=== PATIENT | male | born 1995 | race African-American/Black ===

== ENCOUNTER 2017-07-19 02:34 | Emergency (ER) | payer BC ==
[2017-07-19] MEDS ORDERED: NORMAL SALINE 1000 ML 1,000 ML IV ONE (03:15)
--- NOTE | 2017-07-19 03:16 | ER Document Report ---
ED General <KAIA HOWARD - Last Filed: 07/19/17 06:13> <MANI BAKER - Last Filed: 07/19/17 06:38> - General Chief Complaint: Altered Mental Status Stated Complaint: ALTERED MENTAL STATUS Time Seen by Provider: 07/19/17 02:59 - HPI Notes: Patient is a 22-year-old male with a history of anxiety/depression and psychosis who presents to the ED with altered mental status for the last 6 hours +/-. Pt is a resident of [facility]. One of the employees accompanied patient to the ED by EMS. He states that pt has been hallucinating, scratching at the roman, not articulating words, pretend eating food, and staring off in the distance. He states that the pt has not slept at all since employee arrived for his shift at 2100. He noticed the behavioral change at that time ( running in/out of ppl's rooms, aggressiveness), but was told that he ate dinner and was acting normally prior. Employee states that he is usually talkative and "with it." The facility/employee deny any fall or trauma. He has not had any new medications. They did notice that he has been breathing a little faster and it sounds wheezy. Employee states that he will acknowledge questions , but won't have any clear answers nor will he obey accordingly at times. They deny any other known fever, nasal francesco/discharge, trouble swallowing, drooling, muscle paralysis/weakness, syncope, rash. (MANI BAKER) Past Medical History - General Cannot obtain history due to: Altered mental status - Social History Smoking Status: Unknown if Ever Smoked Family History: Other - unknown <MANI BAKER - Last Filed: 07/19/17 06:38> Review of Systems - Review of Systems -: Yes ROS unobtainable due to patient's medical condition <MANI BAKER - Last Filed: 07/19/17 06:38> Physical Exam <KAIA HOWARD - Last Filed: 07/19/17 06:13> <MANI BAKER - Last Filed: 07/19/17 06:38> - Vital signs Vitals: Temp Pulse Resp BP Pulse Ox 98.8 F 114 H 22 H 122/88 H 99 07/19/17 02:59 07/19/17 02:59 07/19/17 02:59 07/19/17 02:59 07/19/17 02:59 Notes: PHYSICAL EXAMINATION: GENERAL: Well-appearing, well-nourished and in no acute distress. Alert, but not oriented. Pt not following direction very well. Pt noted to be reaching into the air with hands and feeding himself something that isn't there. Pt was babbling and on occasion phrases could be understood. HEAD: Atraumatic, normocephalic. Non-tender. EYES: Pupils equal round and reactive to light, extraocular movements intact, sclera anicteric, conjunctiva are normal. ENT: EAC clear b/l. TM's intact b/l without erythema, fluid, or perforation. Nares patent and without discharge. oropharynx clear without exudates. No tonsilar hypertrophy or erythema. Moist mucous membranes. No sinus tenderness. NECK: Normal range of motion, supple without lymphadenopathy. No rigidity. Pt able to flex neck w/o difficulty or discomfort as well as legs. Non-tender. LUNGS: wheezing b/l. HEART: Tachy rate, regular rhythm without murmurs, rubs, gallops. ABDOMEN: Soft, nondistended abdomen. No masses appreciated. Normal bowel sounds present. No CVA tenderness bilaterally. + ?tenderness due to noted guarding to the RLQ. Musculoskeletal: Ext b/l: FROM to passive/active. Strength 5+/5. No focal deficit noted to extremities. Extremities: No cyanosis, clubbing, or edema b/l. Peripheral pulses 2+. Capillary refill less than 3 seconds. NEUROLOGICAL: GCS 13. MMSE not able to obtain. Cranial nerves grossly intact. Normal sensory, motor exams PSYCH: Normal mood, normal affect. SKIN: Warm, Dry, normal turgor, no rashes or lesions noted. (MANI BAKER) Course - Laboratory Result Diagrams: 07/19/17 04:00 07/19/17 04:00 <KAIA HOWARD - Last Filed: 07/19/17 06:13> - Laboratory Result Diagrams: 07/19/17 04:00 07/19/17 04:00 <MANI BAKER - Last Filed: 07/19/17 06:38> - Re-evaluation Re-evalutation: Patient is a 22-year-old male who was initially seen by the PA. I did go in and evaluate the patient. I did speak with the career development consultant from [facility] who is at bedside. He said that he was called tonight because the patient was agitated and going into other peoples rooms. Patient was picking at the air. Patient was speaking to people who were not there. Patient appeared psychotic. Patient was sent here because they checked his temp and it was 100.0. Upon arrival patient's temp is 98.6. There is no report of antipyretics given. The patient was agitated at [facility] and therefore the implant screw gave him 10 mg of Haldol, 50 mg of Benadryl, and 2 mg of Ativan. Patient is now obviously somnolent and confused after receiving all those medications. The career development consultant from [facility] just denies any recent sick contacts at the facility. He has been there since July 12. It is impossible to obtain any history from the patient himself at this time. Will wait for laboratory evaluation to be completed. At this time will hold off from lumbar puncture being that he is afebrile and his symptoms are more consistent with a psychiatric break. I think meningitis is unlikely based on his history and currently being afebrile. I did review his medications and saw that he is on [place]. I kaila obtain a lithium level. It appears that his lithium was held 24 hours ago. 07/19/17 4:35 07/19/17 05:02 Patient is now much more awake but still obviously confused. He is able to answer some questions but seems very anxious and agitated. In reviewing his medication list again it is hard to determine what exactly has been held and what has been given last 24 hours. He was on Prolixin for psychosis but that was held starting yesterday. His Wellbutrin was also held starting yesterday. His lithium says hold for 24 hours but it also appears that they probably gave it to him yesterday so it is difficult to determine if that was actually held. I suspect that what is going on could be in relation to the recent medication changes he has had last 24 hours. He has no leukocytosis and no fever at this time. We will continue to monitor him and have our psychiatry consult to evaluate and to determine what medications we can start him on to try to control his symptoms. We will give him some IV fluids. We will keep him on the monitor at this time. 07/19/17 06:11 07/19/17 Chest x-ray shows possible pneumonia. He looks really as if the patient did not take a deep breath. I do not see an obvious infiltrate. Being that the patient has had some recent coughing will still cover him in case there is an underlying pneumonia only because it is really difficult to completely rule out based on poor x-ray. She does have a pneumonia is extremely small and I do not think this would be causing his symptoms of psychotic cutting type behavior. (KAIA HOWARD) 07/19/17 03:25 Pt with AMS Pt was given Haldol, benadryl, and ativan in EMS prior to arrival (MANI BAKER) - Vital Signs Vital signs: Temp Pulse Resp BP Pulse Ox 98.8 F 114 H 14 131/63 H 99 07/19/17 02:59 07/19/17 02:59 07/19/17 05:00 07/19/17 04:04 07/19/17 05:00 - Laboratory Laboratory results interpreted by me: 07/19/17 07/19/17 07/19/17 04:00 04:00 04:00 Monocytes % 18.7 H Absolute Monocytes 1.8 H Calcium 10.3 H Creatine Kinase 475 H CK-MB (CK-2) 9.34 H Urine Blood [place] 07/19/17 07/19/17 04:00 04:45 Monocytes % Absolute Monocytes Calcium Creatine Kinase CK-MB (CK-2) Urine Blood SMALL H [place] 0.5 L Discharge <KAIA HOWARD - Last Filed: 07/19/17 06:13> <MANI BAKER - Last Filed: 07/19/17 06:38> - Discharge Clinical Impression: Pneumonia Qualifiers: Pneumonia type: due to unspecified organism Laterality: left Lung location: unspecified part of lung Qualified Code(s): J18.9 - Pneumonia, unspecified organism Instructions: Pneumonia ([facility]), Levofloxacin Additional Instructions: Finish the antibiotic as directed for 4 more days. Monitor for any acute changes in symptoms Maintain adequate fluid intake Take meds as directed tylenol/ibuprofen as needed over the counter cold medication as needed for symptoms Humidified air may help F/u: with your PCM in 2-3 days for a recheck Return to the ED with any fever, worsening pain, chest pain, palpitations, syncope, worsening CONTRERAS, neck pain/stiffness, shortness of breath, wheezing, drooling, trouble swallowing/breathing, abdominal pain, n/v/d, rash, or worsening/concerning symptoms otherwise. Prescriptions: Levofloxacin [Levaquin 750 mg Tablet] 750 mg PO DAILY #4 tablet Referrals: MAXIMUS BERG MD [Primary Care Provider] - Follow up as needed
[2017-07-19 04:26] LABS: ALANINE AMINOTRANSFERASE 64 U/L (21-72); ALBUMIN 4.7 g/dL (3.5-5.0); ALKALINE PHOSPHATASE 83 U/L (38-126); ANION GAP 12 (5-19); ASPARTATE AMINO TRANSFERASE 40 U/L (17-59); BILIRUBIN,DIRECT 0.4 mg/dL (0.0-0.4); BILIRUBIN,TOTAL 0.7 mg/dL (0.2-1.3); BLOOD UREA NITROGEN 10 mg/dL (7-20); CALCIUM 10.3 mg/dL (8.4-10.2); CARBON DIOXIDE 25 mmol/L (22-30); CHLORIDE 104 mmol/L (98-107); CREATINE KINASE 475 U/L (55-170); CREATININE RESULT 0.87 mg/dL (0.52-1.25); GLUCOSE 94 mg/dL (75-110); POTASSIUM 4.3 mmol/L (3.6-5.0); SODIUM 141.3 mmol/L (137-145); TOTAL PROTEIN 7.7 g/dL (6.3-8.2)
[2017-07-19 04:27] LABS: ABSOLUTE BASOPHILS # (AUTO) 0.1 10^3/uL (0.0-0.2); ABSOLUTE EOSINOPHILS # (AUTO) 0.2 10^3/uL (0.0-0.6); ABSOLUTE LYMPHOCYTES (AUTO) 1.3 10^3/uL (0.5-4.7); ABSOLUTE MONOCYTES (AUTO) 1.8 10^3/uL (0.1-1.4); ABSOLUTE NEUT (AUTO) 6.4 10^3/uL (1.7-8.2); BASOPHILS % (AUTO) 0.6 % (0-2); HEMOGLOBIN 14.9 g/dL (13.5-17.0); HGB HCT DIFFERENCE 0.7; LYMPHOCYTES % (AUTO) 13.6 % (13-45); MEAN CORPUSCULAR HEMOGLOBIN 28.9 pg (27.0-33.4); MEAN CORPUSCULAR HGB CONC 33.8 g/dL (32.0-36.0); MEAN CORPUSCULAR VOLUME 85 fl (80-97); MONOCYTES % (AUTO) 18.7 % (3-13); RED BLOOD COUNT 5.15 10^6/uL (4.35-5.55); RED CELL DISTRIBUTION WIDTH 12.3 % (11.5-14.0); SEGMENTED NEUTROPHILS % (AUTO) 65.1 % (42-78); WHITE BLOOD COUNT 9.8 10^3/uL (4.0-10.5)
[2017-07-19 04:29] LABS: PROTHROMBIN TIME 13.7 SEC (11.4-15.4)
[2017-07-19 04:30] LABS: PARTIAL THROMBOPLASTIN TIME 31.5 SEC (23.5-35.8)
[2017-07-19 05:05] LABS: APPEARANCE,URINE CLEAR; BILIRUBIN,URINE NEGATIVE (NEGATIVE); GLUCOSE, URINE NEGATIVE (NEGATIVE); KETONES,URINE NEGATIVE (NEGATIVE); LEUKOCYTE ESTERASE,URINE NEGATIVE (NEGATIVE); NITRITE,URINE NEGATIVE (NEGATIVE); PROTEIN,URINE NEGATIVE (NEGATIVE); UROBILINOGEN,URINE NEGATIVE mg/dL (<2.0)
[2017-07-19] MEDS ORDERED: LORAZEPAM INJ 2 MG/1 ML VIAL IV ONE ×2 (05:06→15:31)
[2017-07-19 05:19] LABS: URINE BARBITURATES SCREEN NEGATIVE; URINE METHADONE SCREEN NEGATIVE; URINE OPIATES LOW NEGATIVE; URINE PHENCYCLIDINE SCREEN NEGATIVE
--- NOTE | 2017-07-19 05:30 | RADIOLOGY REPORT (SQ) ---
EXAM DESCRIPTION: CHEST SINGLE VIEW COMPLETED DATE/TIME: 07/19/2017 5:17 am REASON FOR STUDY: wheezing, AMS COMPARISON: None. EXAM PARAMETERS: NUMBER OF VIEWS: One view. TECHNIQUE: Single frontal radiographic view of the chest acquired. RADIATION DOSE: NA LIMITATIONS: None. FINDINGS: LUNGS AND PLEURA: Moderate -small lung volumes. Small opacity-effusion obscures the left costophrenic angle. MEDIASTINUM AND HILAR STRUCTURES: No masses. Contour normal. HEART AND VASCULAR STRUCTURES: Prominent cardiac silhouette. BONES: No acute findings. HARDWARE: None in the chest. OTHER: No other significant finding. IMPRESSION: Moderate-small lung volumes. Left basilar opacity may indicate pneumonia or effusion. TECHNICAL DOCUMENTATION: JOB ID: [id number]
[2017-07-19] MEDS ORDERED: LEVOFLOXACIN 750 MG TABLET PO ONE (06:06)
--- NOTE | 2017-07-19 10:01 | EKG REPORT ---
SEVERITY:- OTHERWISE NORMAL ECG - SINUS TACHYCARDIA : Confirmed by: Malka Marcelino MD 19-Jul-2017 10:01:05
[2017-07-19] MEDS ORDERED: NORMAL SALINE 1000 ML 1,000 ML IV PRN ×3 (10:44→15:31)
--- NOTE | 2017-07-19 11:09 | ER Document Report ---
Doctor's Note Notes: 07/19/17 11:10 Upon initial evaluation of patient, he remains tachycardic throughout the night , his lips are extremely dry, he mumbles words, and appears to be reaching an air for something that is not there, he had an episode of incontinence as well, he is unknown to this emergency room prior to today's visit but according to staff at [facility] this is an acute change in behavior for him, he is currently a resident at [facility], has a history of schizophrenia, had some medication changes over the past 24 hours it appears, he is on Cogentin 2 mg twice a day, was given a dose of Benadryl, and his Wellbutrin and Prolixin were held as well as his lithium, on initial appearance patient appears to be having an anticholinergic toxicity syndrome, therefore poison control was called immediately, I spoke with Minerva who agrees that patient's symptoms are consistent with anticholinergic syndrome, she recommend supportive care, monitoring EKG, providing IV fluids, benzos as needed for agitation or seizure behavior 07/19/17 17:38 We did finally receive the full record from [facility], patient was admitted there on 07/12/2017, heart rate is noted to be 122 at time of admission, however he did appear to be much more coherent at that point in time, patient was briefly discussed with Dr. Tate who recommends he be started on a small dose of Haldol 2.5 mg and propranolol 5 mg 07/19/17 19:01 Patient is much more awake and alert, and he is cursing and nursing staff, his heart rate is down and he appears to be continuously improving, we will continue to monitor patient's until he reaches his baseline and then he will likely be discharged back to [facility] Course - Re-evaluation Re-evalutation: 07/19/17 12:54 Patient seems to be much more awake and alert, his words remain slurred but I can at least understand a portion of them now, the [facility] worker at bedside reports that he is improved however not quite at baseline yet, nursing staff is concerned as patient keeps trying to get up out of bed and has already self removed 1 of his IVs, the IV has been replaced and he continues to receive IV fluids - Vital Signs Vital signs: Temp Pulse Resp BP Pulse Ox 97.9 F 104 H 20 132/81 H 100 07/19/17 16:39 07/19/17 10:34 07/19/17 18:00 07/19/17 17:27 07/19/17 18:00 - Laboratory Result Diagrams: 07/19/17 11:32 07/19/17 11:32 Laboratory results interpreted by me: 07/19/17 07/19/17 07/19/17 04:00 04:00 04:00 Lymphocytes % Monocytes % 18.7 H Absolute Monocytes 1.8 H Calcium 10.3 H Creatine Kinase 475 H CK-MB (CK-2) 9.34 H Urine Blood Platea 07/19/17 07/19/17 07/19/17 04:00 04:45 11:32 Lymphocytes % 12.2 L Monocytes % 19.7 H Absolute Monocytes 1.8 H Calcium Creatine Kinase CK-MB (CK-2) Urine Blood SMALL H Platea 0.5 L 07/19/17 07/19/17 11:32 11:32 Lymphocytes % Monocytes % Absolute Monocytes Calcium Creatine Kinase 609 H CK-MB (CK-2) 10.70 H Urine Blood Platea 0.4 L - EKG Interpretation by In EKG shows normal: Sinus rhythm Rate: Tachycardia Additional EKG results interpreted by me: 07/19/17 11:28 EKG is sinus tachycardia at a rate of 105, QRS D 88, QT 340, QTc 450
[2017-07-19 11:44] LABS: ABSOLUTE EOSINOPHILS # (AUTO) 0.1 10^3/uL (0.0-0.6); ABSOLUTE LYMPHOCYTES (AUTO) 1.1 10^3/uL (0.5-4.7); ABSOLUTE MONOCYTES (AUTO) 1.8 10^3/uL (0.1-1.4); BASOPHILS % (AUTO) 0.5 % (0-2); EOSINOPHILS % (AUTO) 1.5 % (0-6); HEMOGLOBIN 14.7 g/dL (13.5-17.0); HGB HCT DIFFERENCE 0.1; LYMPHOCYTES % (AUTO) 12.2 % (13-45); MEAN CORPUSCULAR HEMOGLOBIN 28.4 pg (27.0-33.4); MEAN CORPUSCULAR HGB CONC 33.5 g/dL (32.0-36.0); MEAN CORPUSCULAR VOLUME 85 fl (80-97); MONOCYTES % (AUTO) 19.7 % (3-13); RED CELL DISTRIBUTION WIDTH 12.3 % (11.5-14.0); SEGMENTED NEUTROPHILS % (AUTO) 66.1 % (42-78); WHITE BLOOD COUNT 9.1 10^3/uL (4.0-10.5)
[2017-07-19 12:09] LABS: ALANINE AMINOTRANSFERASE 59 U/L (21-72); ALBUMIN 4.5 g/dL (3.5-5.0); ALKALINE PHOSPHATASE 83 U/L (38-126); ANION GAP 14 (5-19); ASPARTATE AMINO TRANSFERASE 40 U/L (17-59); BILIRUBIN,DIRECT 0.4 mg/dL (0.0-0.4); BILIRUBIN,TOTAL 0.8 mg/dL (0.2-1.3); BLOOD UREA NITROGEN 9 mg/dL (7-20); CARBON DIOXIDE 25 mmol/L (22-30); CHLORIDE 103 mmol/L (98-107); CREATINE KINASE 609 U/L (55-170); CREATININE RESULT 0.81 mg/dL (0.52-1.25); GLUCOSE 87 mg/dL (75-110); LITHIUM 0.4 mEq/L (0.6-1.2); POTASSIUM 4.2 mmol/L (3.6-5.0); SODIUM 141.8 mmol/L (137-145); TOTAL PROTEIN 7.4 g/dL (6.3-8.2)
[2017-07-19] MEDS ORDERED: PROPRANOLOL HCL INJ/PF 1 MG/1 ML SDV IV ONE (17:11)
[2017-07-19] MEDS: HALOPERIDOL LACTATE INJ 5 MG/1 ML VIAL IM SCH (17:29)
[2017-07-19] MEDS ORDERED: DIAZEPAM INJ 10 MG/2 ML DISP.SYRIN IV ONE (20:22)
--- NOTE | 2017-07-20 03:54 | EKG REPORT ---
SEVERITY:- ABNORMAL ECG - SINUS TACHYCARDIA PAIRED VENTRICULAR PREMATURE COMPLEXES : Confirmed by: Malka Marcelino MD 20-Jul-2017 03:53:42
[2017-07-20] MEDS: HALOPERIDOL LACTATE INJ 5 MG/1 ML VIAL IM SCH (10:12)
--- NOTE | 2017-07-20 10:12 | ER Document Report ---
Doctor's Note Notes: 07/20/17 10:12 Patient resting comfortably, easily awakens, his first question is "what time is it", his speech seems to be much more clear today, overall vital signs have been stable and he appears to be doing much better, anticipate likely discharge back to [facility] later today if patient continues to do well, no complaints at this time 07/20/17 14:52 Patient awake and alert, standing at bedside preparing to eat his lunch, I asked how he was doing any stated "I do not want to talk about it", he was very clear with his speech and easy to understand
[2017-07-20] MEDS ORDERED: PROPRANOLOL HCL 20 MG TABLET PO SCH (10:45)
--- NOTE | 2017-07-20 11:24 | ER Document Report ---
ED Psych Disorder / Suicide - General Chief Complaint: Altered Mental Status Stated Complaint: ALTERED MENTAL STATUS Time Seen by Provider: 07/19/17 02:59 - HPI Notes: 07/19/2017 Patient presented to [facility] ED via EMS from [facility]. Patient presentation indicates altered mental status. [employer] [employer] employee at bedside states pt's baseline cognition is A&Ox4 but tonight he has had increasing aggression and confusion. states he was wondering from room to room, hallucinating, and acting "off." pt is alert, aggressive, uncooperative, verbalizing but only uncomprehensible sounds, moves all with equal strength. Patient currently in acute psychosis from unknown cause. Patient is currently not medically cleared and will attempt to evaluate at a later time. 07/20/2017 Patient is starting to show improvement with more awareness to his surroundings. Patient is able to verbalize more effectively. Patient is still showing some difficulties with orientation. Patient was originally admitted to [facility] for suicidal ideation and possible psychosis. Patient is still an active patient of that facility. Is recommended patient return to [facility] for his continued mental health treatment. 295.90 (F20.9) schizophrenia per [facility] records Impression\\plan: Patient is cleared from behavior health team here at [facility] to return to [facility] for his psychiatric treatment. At this time is believed the patient may have had an adverse reaction to medication changes he was undergoing while receiving treatment. Dr. Tate was consulted on the care and management of this patient; attending physician is in agreement with recommendations and disposition. - Related Data Allergies/Adverse Reactions: No Known Allergies Allergy (Verified 07/19/17 08:11) Home Medications: Current Home Medications Acetaminophen [Pain Relief] 650 mg PO Q6H PRN 07/19/17 [History] Albuterol Sulfate [Ventolin Hfa] 2 puff IH Q4 PRN 07/19/17 [History] Benzocaine/Menthol [Cepacol Sore Throat Lozenge] 1 each MM Q4H PRN 07/19/17 [ History] Benztropine Mesylate [Cogentin 1 mg Tablet] 2 mg PO BID 07/19/17 [History] Diphenhydramine HCl [Benadryl] 50 mg PO Q8H PRN 07/19/17 [History] Emollient Base [Pcca Emollient] 1 gm TP DAILY PRN 07/19/17 [History] Haloperidol [Haldol 5 mg Tablet] 10 mg PO Q8H PRN 07/19/17 [History] Hydroxyzine Pamoate [Vistaril 50 mg Capsule] 50 mg PO Q8H PRN 07/19/17 [History] Ketotifen Fumarate [Refresh] 2 drop OP Q2H PRN 07/19/17 [History] Lactulose [Constulose] 30 ml PO BID PRN 07/19/17 [History] [place]amo Carbonate [Coamo Carbonate ER] 450 mg PO TID 07/19/17 [History] Loperamide HCl [Imodium 2 mg Capsule] 2 mg PO TID 07/19/17 [History] Lorazepam 2 mg PO Q8H PRN 07/19/17 [History] Mag Hydrox/Al Hydrox/Simeth [Maalox Plus Susp 30 Udcup] 30 ml PO Q6 PRN [History] Magnesium Hydroxide [Milk of Magnesia 30 ml Udcup] 30 ml PO DAILY PRN 07/19/17 [ History] Nicotine Polacrilex [Nicotine Gum] 4 mg BC Q1H 07/19/17 [History] Nicotine [Nicotine Patch] 1 each TD DAILY 07/19/17 [History] Sodium Chloride [[place] Nasal [place] 44 ml Bottle] 1 spray NASL PRN PRN 07/19/17 [ History] Trazodone HCl [Desyrel 50 mg Tablet] 50 mg PO QHS 07/19/17 [History] Zolpidem Tartrate [Ambien] 10 mg PO DAILY PRN 07/19/17 [History] Past Medical History - Social History Smoking Status: Unknown if Ever Smoked Family History: Other - unknown Psychiatric Medical History: Reports: Hx Depression, Hx Schizophrenia Physical Exam - Vital signs Vitals: Temp Pulse Resp BP Pulse Ox 98.8 F 114 H 22 H 122/88 H 99 07/19/17 02:59 07/19/17 02:59 07/19/17 02:59 07/19/17 02:59 07/19/17 02:59 Course - Vital Signs Vital signs: Temp Pulse Resp BP Pulse Ox 97.9 F 104 H 19 112/73 96 07/19/17 16:39 07/19/17 10:34 07/20/17 06:00 07/20/17 04:02 07/20/17 06:00 - Laboratory Result Diagrams: 07/19/17 11:32 07/19/17 11:32 Laboratory results interpreted by me: 07/19/17 07/19/17 07/19/17 04:00 04:00 04:00 Lymphocytes % Monocytes % 18.7 H Absolute Monocytes 1.8 H Calcium 10.3 H Creatine Kinase 475 H CK-MB (CK-2) 9.34 H Urine Blood [place] 07/19/17 07/19/17 07/19/17 04:00 04:45 11:32 Lymphocytes % 12.2 L Monocytes % 19.7 H Absolute Monocytes 1.8 H Calcium Creatine Kinase CK-MB (CK-2) Urine Blood SMALL H [place] 0.5 L 07/19/17 07/19/17 11:32 11:32 Lymphocytes % Monocytes % Absolute Monocytes Calcium Creatine Kinase 609 H CK-MB (CK-2) 10.70 H Urine Blood [place] 0.4 L Discharge - Discharge Clinical Impression: Pneumonia Qualifiers: Pneumonia type: due to unspecified organism Laterality: left Lung location: unspecified part of lung Qualified Code(s): J18.9 - Pneumonia, unspecified organism Instructions: Levofloxacin, Pneumonia ([facility]) Additional Instructions: Finish the antibiotic as directed for 4 more days. Monitor for any acute changes in symptoms Maintain adequate fluid intake Take meds as directed tylenol/ibuprofen as needed over the counter cold medication as needed for symptoms Humidified air may help F/u: with your PCM in 2-3 days for a recheck Return to the ED with any fever, worsening pain, chest pain, palpitations, syncope, worsening CONTRERAS, neck pain/stiffness, shortness of breath, wheezing, drooling, trouble swallowing/breathing, abdominal pain, n/v/d, rash, or worsening/concerning symptoms otherwise. Prescriptions: Levofloxacin [Levaquin 750 mg Tablet] 750 mg PO DAILY #4 tablet Referrals: MAXIMUS BERG MD [Primary Care Provider] - Follow up as needed
[2017-07-20 16:26] VITALS: BP 137/64
[2017-07-20] MEDS ORDERED: HALOPERIDOL 5 MG TABLET PO SCH (18:00)
== END 2017-07-20 16:27 ==
LOC: ER 02:34
DX: J18.9 Pneumonia, unspecified organism (principal); R41.82 Altered mental status, unspecified; F20.9 Schizophrenia, unspecified; Z79.899 Other long term (current) drug therapy
CPT/HCPCS: 93005; 99285; 96372; 96361; 96374; 96375; 36415; 87040; 82553; 82550; 80178; 85025; 85610; 85730; 80053; 81001; 80307; 83605; 71010; 93010; J3360; J1630 ×2; J2060; J1800; J7030

== ENCOUNTER 2017-07-23 09:29 | Emergency (ER) | payer BC ==
--- NOTE | 2017-07-23 10:02 | ER Document Report ---
ED Medical Screen (RME) - General Chief Complaint: Chest Pain Stated Complaint: DIFFICULTY BREATHING Time Seen by Provider: 07/23/17 10:00 Mode of Arrival: Ambulatory Information source: Patient Notes: 22-year-old man with a psychiatric history, active smoker presents to the emergency room cough, weakness, shortness of breath for the past 4 days. Patient has been treated at [facility] with levofloxacin for the past few days. TRAVEL OUTSIDE OF THE [place] IN LAST 30 DAYS: No - Related Data Allergies/Adverse Reactions: amoxicillin Allergy (Verified 07/23/17 09:40) Penicillins Allergy (Verified 07/23/17 09:40) Past Medical History Renal/ Medical History: Denies: Hx Peritoneal Dialysis Psychiatric Medical History: Reports: Hx Depression, Hx Schizophrenia Physical Exam - Vital signs Vitals: Temp Pulse Resp BP Pulse Ox 98.6 F 99 16 128/77 H 97 07/23/17 09:41 07/23/17 09:41 07/23/17 09:41 07/23/17 09:41 07/23/17 09:41 Course - Vital Signs Vital signs: Temp Pulse Resp BP Pulse Ox 98.6 F 99 16 128/77 H 97 07/23/17 09:41 07/23/17 09:41 07/23/17 09:41 07/23/17 09:41 07/23/17 09:41
[2017-07-23 10:39] LABS: ABSOLUTE BASOPHILS # (AUTO) 0.1 10^3/uL (0.0-0.2); ABSOLUTE EOSINOPHILS # (AUTO) 0.2 10^3/uL (0.0-0.6); ABSOLUTE LYMPHOCYTES (AUTO) 1.7 10^3/uL (0.5-4.7); ABSOLUTE MONOCYTES (AUTO) 0.8 10^3/uL (0.1-1.4); ABSOLUTE NEUT (AUTO) 3.6 10^3/uL (1.7-8.2); EOSINOPHILS % (AUTO) 2.8 % (0-6); HEMATOCRIT 45.1 % (37.9-51.0); HEMOGLOBIN 15.5 g/dL (13.5-17.0); HGB HCT DIFFERENCE 1.4; LYMPHOCYTES % (AUTO) 26.8 % (13-45); MEAN CORPUSCULAR HEMOGLOBIN 28.6 pg (27.0-33.4); MEAN CORPUSCULAR HGB CONC 34.3 g/dL (32.0-36.0); MEAN CORPUSCULAR VOLUME 84 fl (80-97); MONOCYTES % (AUTO) 13.3 % (3-13); RED CELL DISTRIBUTION WIDTH 12.3 % (11.5-14.0); SEGMENTED NEUTROPHILS % (AUTO) 56.1 % (42-78); WHITE BLOOD COUNT 6.4 10^3/uL (4.0-10.5)
--- NOTE | 2017-07-23 10:45 | RADIOLOGY REPORT (SQ) ---
EXAM DESCRIPTION: CHEST PA/LAT COMPLETED DATE/TIME: 07/23/2017 10:35 am REASON FOR STUDY: sob COMPARISON: None. EXAM PARAMETERS: NUMBER OF VIEWS: two views TECHNIQUE: Digital Frontal and Lateral radiographic views of the chest acquired. RADIATION DOSE: NA LIMITATIONS: none FINDINGS: LUNGS AND PLEURA: No opacities, masses or pneumothorax. No pleural effusion. MEDIASTINUM AND HILAR STRUCTURES: No masses or contour abnormalities. HEART AND VASCULAR STRUCTURES: Heart normal size. No evidence for failure. BONES: No acute findings. HARDWARE: None in the chest. OTHER: No other significant finding. IMPRESSION: NO SIGNIFICANT RADIOGRAPHIC FINDING IN THE CHEST. TECHNICAL DOCUMENTATION: JOB ID: [id number] [employer]- All Rights Reserved
[2017-07-23 11:02] LABS: ALANINE AMINOTRANSFERASE 62 U/L (21-72); ALBUMIN 4.1 g/dL (3.5-5.0); ALKALINE PHOSPHATASE 83 U/L (38-126); ANION GAP 7 (5-19); ASPARTATE AMINO TRANSFERASE 37 U/L (17-59); BILIRUBIN,DIRECT 0.3 mg/dL (0.0-0.4); BILIRUBIN,TOTAL 0.7 mg/dL (0.2-1.3); BLOOD UREA NITROGEN 7 mg/dL (7-20); CALCIUM 9.9 mg/dL (8.4-10.2); CARBON DIOXIDE 31 mmol/L (22-30); CHLORIDE 105 mmol/L (98-107); GLUCOSE 127 mg/dL (75-110); POTASSIUM 4.3 mmol/L (3.6-5.0); SODIUM 142.7 mmol/L (137-145)
--- NOTE | 2017-07-23 11:50 | ER Document Report ---
ED General - General Chief Complaint: Chest Pain Stated Complaint: DIFFICULTY BREATHING Time Seen by Provider: 07/23/17 10:00 Mode of Arrival: Ambulatory TRAVEL OUTSIDE OF THE [place] IN LAST 30 DAYS: No - HPI Notes: Patient is a 22-year-old male who presents to the ED with continued dry nonproductive cough, nasal congestion/discharge, and throat irritation with the cough only 1 week. Patient was recently admitted for a psychosis event and was initially evaluated by myself and Dr. Lockett. We found a possible pneumonia at that time and started him on Levaquin. Patient states that he is still finishing up his Levaquin, but wanted to get checked out because of the continued cough. Patient states that otherwise he feels much better and states that he does not remember much of what happened last week. He still eating and drinking without any difficulties. He is urinating normally and having normal bowel movements. Denies any headache, fever, neck pain, URI, chest pain, palpitations, syncope, shortness of breath, wheeze, dyspnea, abdominal pain, nausea/vomiting/diarrhea, urinary retention, dysuria, hematuria, or rash. - Related Data Allergies/Adverse Reactions: amoxicillin Allergy (Verified 07/23/17 09:40) Penicillins Allergy (Verified 07/23/17 09:40) Past Medical History - General Information source: Patient - Social History Smoking Status: Current Every Day Smoker Chew tobacco use (# tins/day): No Frequency of alcohol use: None Drug Abuse: None Family History: Reviewed & Not Pertinent, Other - unknown Patient has suicidal ideation: Yes Renal/ Medical History: Denies: Hx Peritoneal Dialysis Psychiatric Medical History: Reports: Hx Depression, Hx Schizophrenia Surgical Hx: Negative - Immunizations Hx Diphtheria, Pertussis, Tetanus Vaccination: Yes Review of Systems - Review of Systems Notes: REVIEW OF SYSTEMS: CONSTITUTIONAL : Denies fever, chills, or sweats. Denies recent illness. EENT: see hpi. Denies eye, ear, throat, or mouth pain or symptoms. Denies nasal or sinus congestion or discharge. Denies throat, tongue, or mouth swelling or difficulty swallowing. CARDIOVASCULAR: Denies chest pain. Denies palpitations or racing or irregular heart beat. Denies ankle edema. RESPIRATORY: see hpi. GASTROINTESTINAL: Denies abdominal pain or distention. Denies nausea, vomiting , or diarrhea. Denies blood in vomitus, stools, or per rectum. Denies black, tarry stools. Denies constipation. GENITOURINARY: Denies difficulty urinating, painful urination, burning, frequency, blood in urine, or discharge. MUSCULOSKELETAL: Denies back or neck pain or stiffness. Denies joint pain or swelling. SKIN: Denies rash, lesions or sores. NEUROLOGICAL: Denies confusion or altered mental status. Denies passing out or loss of consciousness. Denies dizziness or lightheadedness. Denies headache. Denies weakness or paralysis or loss of use of either side. Denies problems with gait or speech. Denies sensory loss, numbness, or tingling. ALL OTHER SYSTEMS REVIEWED AND NEGATIVE. Dictation was performed using [employer] voice recognition software Physical Exam - Vital signs Vitals: Temp Pulse Resp BP Pulse Ox 98.6 F 99 16 128/77 H 97 07/23/17 09:41 07/23/17 09:41 07/23/17 09:41 07/23/17 09:41 07/23/17 09:41 Notes: PHYSICAL EXAMINATION: GENERAL: Well-appearing, well-nourished and in no acute distress. A&Ox4 HEAD: Atraumatic, normocephalic. EYES: Pupils equal round and reactive to light, extraocular movements intact, sclera anicteric, conjunctiva are normal. ENT: EAC clear b/l. TM's intact b/l without erythema, fluid, or perforation. Nares patent and without discharge. oropharynx clear without exudates. No tonsilar hypertrophy or erythema. Moist mucous membranes. No sinus tenderness. NECK: Normal range of motion, supple without lymphadenopathy. No rigidity/ meningismus. LUNGS: Breath sounds clear to auscultation bilaterally and equal. No wheezes rales or rhonchi. HEART: Regular rate and rhythm without murmurs, rubs, gallops. Extremities: No cyanosis, clubbing, or edema b/l. Peripheral pulses 2+. Capillary refill less than 3 seconds. NEUROLOGICAL: Cranial nerves grossly intact. Normal speech, normal gait. Normal sensory, motor exams PSYCH: Normal mood, normal affect. SKIN: Warm, Dry, normal turgor, no rashes or lesions noted. Course - Re-evaluation Re-evalutation: 07/23/17 11:48 Patient is an afebrile, well-hydrated, 22-year-old male who presents the ED with a continued cough status post treatment for pneumonia. Vitals are stable. PE otherwise unremarkable. Patient is continuing to take his Levaquin as directed. Chest x-ray was unremarkable for any acute pathology. CBC and CMP were also unremarkable as well as influenza test. I suspect that he has a residual cough status post illness and possibly even a viral etiology. Low suspicion/risk for any ACS, PE, dissection, pericarditis, pneumothorax, sepsis, meningitis, or other systemic emergent condition at this time. Patient is aware that his condition can change from initial presentation and he needs to monitor symptoms closely and seek medical attention if any acute changes. I will send him home with a prescription for Tessalon to help with the cough. Conservative measures otherwise for symptoms. Finish the antibiotic. Have your rounding physician at your facility evaluate you in the next couple days for a recheck. Return to the ED with any worsening/concerning symptoms otherwise as reviewed in discharge. Patient is in agreement. - Vital Signs Vital signs: Temp Pulse Resp BP Pulse Ox 98.6 F 99 16 128/77 H 97 07/23/17 09:41 07/23/17 09:41 07/23/17 09:41 07/23/17 09:41 07/23/17 09:41 - Laboratory Result Diagrams: 07/23/17 10:26 07/23/17 10:26 Laboratory results interpreted by me: 07/23/17 07/23/17 10:26 10:26 Monocytes % 13.3 H Carbon Dioxide 31 H Glucose 127 H Discharge - Discharge Clinical Impression: Cough Condition: Stable Disposition: HOME, SELF-CARE Additional Instructions: Maintain adequate fluid intake Take meds as directed tylenol/ibuprofen as needed over the counter cold medication as needed for symptoms Humidified air may help F/u: with your PCM in 2-3 days for a recheck Return to the ED with any fever, worsening pain, chest pain, palpitations, syncope, worsening CONTRERAS, neck pain/stiffness, shortness of breath, wheezing, drooling, trouble swallowing/breathing, abdominal pain, n/v/d, rash, or worsening/concerning symptoms otherwise. Forms: Elevated Blood Pressure, Smoking Cessation Education
[2017-07-23 12:21] VITALS: BP 116/74
== END 2017-07-23 11:55 | disposition home or self-care (01) ==
LOC: ER 09:29
DX: R07.9 Chest pain, unspecified (principal); R06.00 Dyspnea, unspecified; R05 Cough; F17.200 Nicotine dependence, unspecified, uncomplicated; Z88.0 Allergy status to penicillin
CPT/HCPCS: 36415; 71020; 80053; 85025; 87804; 99285

== ENCOUNTER 2017-10-08 07:21 | Emergency (ER) | payer BC ==
--- NOTE | 2017-10-08 08:30 | ER Document Report ---
ED General <TIMOTHY AN - Last Filed: 10/08/17 13:09> - General TRAVEL OUTSIDE OF THE U.S. IN LAST 30 DAYS: No - HPI Patient complains to provider of: Psychiatric evaluation. <MARVIN ANGLIN - Last Filed: 10/08/17 14:03> - General Chief Complaint: Suicidal Ideation Stated Complaint: IVC Time Seen by Provider: 10/08/17 07:31 - HPI Notes: Patient coming in [facility] has a history of schizophrenia states is been off his medication unable to afford them does have recent history of being discharged from [place] patient has been discharged the last 6 day currently is residing in the home [facility]. States having thoughts of harming himself.. . Patient otherwise denies any other past medical issues patient is resting calmly denies cutting denies any HI. (MARVIN ANGLIN) - Related Data Allergies/Adverse Reactions: amoxicillin Allergy (Verified 07/23/17 09:40) Penicillins Allergy (Verified 07/23/17 09:40) Past Medical History - Social History Smoking Status: Current Every Day Smoker Frequency of alcohol use: None Drug Abuse: None Family History: Reviewed & Not Pertinent, Other - unknown Patient has suicidal ideation: Yes Patient has homicidal ideation: No Renal/ Medical History: Denies: Hx Peritoneal Dialysis Psychiatric Medical History: Reports: Hx Depression, Hx Schizophrenia - Immunizations Hx Diphtheria, Pertussis, Tetanus Vaccination: Yes <MARVIN ANGLIN - Last Filed: 10/08/17 14:03> Review of Systems - Review of Systems Constitutional: No symptoms reported EENT: No symptoms reported Cardiovascular: No symptoms reported Respiratory: No symptoms reported Gastrointestinal: No symptoms reported Genitourinary: No symptoms reported Male Genitourinary: No symptoms reported Musculoskeletal: No symptoms reported Skin: No symptoms reported Hematologic/Lymphatic: No symptoms reported Neurological/Psychological: Suicidal ideation -: Yes All other systems reviewed and negative <MARVIN ANGLIN - Last Filed: 10/08/17 14:03> Physical Exam - Vital signs Interpretation: Normal - General General appearance: Appears well, Alert - HEENT Head: Normocephalic, Atraumatic Eyes: Normal Pupils: PERRL - Respiratory Respiratory status: No respiratory distress Chest status: Nontender Breath sounds: Normal Chest palpation: Normal - Cardiovascular Rhythm: Regular Heart sounds: Normal auscultation Murmur: No - Abdominal Inspection: Normal, Obese Distension: No distension Bowel sounds: Normal Tenderness: Nontender Organomegaly: No organomegaly - Back Back: Normal, Nontender - Extremities General upper extremity: Normal inspection, Nontender, Normal color, Normal ROM , Normal temperature General lower extremity: Normal inspection, Nontender, Normal color, Normal ROM , Normal temperature, Normal weight bearing. No: Doris's sign - Neurological Neuro grossly intact: Yes Cognition: Normal Orientation: AAOx4 Melissa Coma Scale Eye Opening: Spontaneous Melissa Coma Scale Verbal: Oriented [place] Coma Scale Motor: Obeys Commands [place] Coma Scale Total: 15 Speech: Normal Motor strength normal: LUE, RUE, LLE, RLE Sensory: Normal - Psychological Associated symptoms: Flat affect - Skin Skin Temperature: Warm Skin Moisture: Dry Skin Color: Normal <MARVIN ANGLIN - Last Filed: 10/08/17 14:03> - Vital signs Vitals: Temp Pulse Resp BP Pulse Ox 97.8 F 99 20 126/77 H 97 10/08/17 07:56 10/08/17 07:56 10/08/17 07:56 10/08/17 07:56 10/08/17 07:56 Course - Laboratory Result Diagrams: 10/08/17 08:13 10/08/17 08:13 <TIMOTHY AN - Last Filed: 10/08/17 13:09> - Laboratory Result Diagrams: 10/08/17 08:13 10/08/17 08:13 - EKG Interpretation by In EKG shows normal: Sinus rhythm Rate: Normal Rhythm: NSR When compared to previous EKG there are: No significant change <MARVIN ANGLIN - Last Filed: 10/08/17 14:03> - Re-evaluation Re-evalutation: 10/08/17 08:28 Physical examination otherwise unremarkable. Will perform laboratory studies. EKG does not show any considerable pathology. Laboratory studies are negative patient medically clear for psychiatric evaluation and disposition. 10/08/17 14:01 Patient was evaluated by our psychiatric team. Patient with clear thought process patient is requesting to go back and patient however upon redirection patient is from [place] was not transported back to [place] once he was discharged from [place]. Upon asking the patient if you let go back to [place] patient agrees. Patient upon my last evaluation no longer states any other suicidal ideation agrees her plan to discharge patient back to the home custodial night his mother has agreed to come pick the patient up at homeless custodial and take him back to [facility] although he will not be allowed in her home patient states he will reside at the homeless custodial there (MARVIN ANGLIN) - Vital Signs Vital signs: Temp Pulse Resp BP Pulse Ox 97.8 F 95 20 123/79 96 10/08/17 13:16 10/08/17 13:15 10/08/17 13:15 10/08/17 13:15 10/08/17 13:15 - Laboratory Laboratory results interpreted by me: 10/08/17 08:13 Alkaline Phosphatase 134 H Salicylates < 1.0 L Acetaminophen < 10 L Fountain < 0.2 L Discharge <TIMOTHY AN - Last Filed: 10/08/17 13:09> <MARVIN ANGLIN - Last Filed: 10/08/17 14:03> - Discharge Clinical Impression: Suicidal ideations Schizophrenia Qualifiers: Schizophrenia type: unspecified Qualified Code(s): F20.9 - Schizophrenia, unspecified Condition: Stable Disposition: HOME, SELF-CARE Additional Instructions: Schizophrenia Schizophrenia is a chemical disorder that affects how the brain functions. The exact cause is unknown, but it tends to run in families. It is NOT caused by emotional trauma. Schizophrenia causes disordered thinking, including unusual beliefs and inability to "process" happenings around the patient. Patients with schizophrenia benefit greatly from medicine. These medicines are called antipsychotics. Never stop the medicine without the doctor 's approval. Counselling may help the patient deal with his disease. Schizophrenics require a very ordered environment. Stresses and sudden changes may bring out symptoms. Drugs and alcohol abuse may become problems. Contact the counsellor or crisis line if there are thoughts of suicide or of harming others, or if you become aware of unusual thoughts or beliefs DEPRESSION: Your evaluation reveals that you have mental depression. While symptoms may be vague, they often include disturbance of sleep, fatigue, loss of appetite , and general loss of interest in life. While depression may be a side effect of drugs, or a reaction to a major change in your life, many cases have no known cause. If depression is acute, and related to a major loss in your life, you can expect it to clear completely with time. If you have been depressed a long time , are prone to repeated bouts of depression or low mood, or have been thinking of suicide, get help. Depression can be treated with anti-depressant medication and counselling. Long-term depression will often take a few weeks to clear, even with appropriate medication. Follow-up care is important. SUICIDAL IDEATION: Suicidal ideation is a common medical term for thoughts about suicide, which may be as detailed as a formulated plan, without the suicidal act itself. Although most people who undergo suicidal ideation do not commit suicide, some go on to make suicide attempts. The range of suicidal ideation varies greatly from fleeting to detailed planning, role playing, and unsuccessful attempts. While thoughts about suicide are common, most people do not carry out serious actions to commit suicide. Based upon your evaluation and discussion with you, we do not believe you are currently at risk to act upon your thoughts of suicide. You have agreed to return to the Emergency Department, at any time , if you feel inclined to act upon your suicidal thoughts. You will go back to the homeless custodial this evening and your mother will pick you up in the morning to take you back to [facility]. You should continue medication Rosa Johnson Discharged you with and follow up with outpatient services in the [facility]. If you experience worsening or a significant change in your symptoms, notify the physician immediately, utilize mobile crisis or return to the Emergency Department at any time for re-evaluation.
[2017-10-08 08:40] LABS: ABSOLUTE LYMPHOCYTES (AUTO) 1.5 10^3/uL (0.5-4.7); ABSOLUTE MONOCYTES (AUTO) 0.7 10^3/uL (0.1-1.4); ABSOLUTE NEUT (AUTO) 4.3 10^3/uL (1.7-8.2); BASOPHILS % (AUTO) 0.7 % (0-2); EOSINOPHILS % (AUTO) 0.6 % (0-6); HEMATOCRIT 43.7 % (37.9-51.0); HEMOGLOBIN 14.8 g/dL (13.5-17.0); HGB HCT DIFFERENCE 0.7; MEAN CORPUSCULAR HEMOGLOBIN 28.3 pg (27.0-33.4); MEAN CORPUSCULAR VOLUME 83 fl (80-97); MONOCYTES % (AUTO) 11.3 % (3-13); RED BLOOD COUNT 5.25 10^6/uL (4.35-5.55); SEGMENTED NEUTROPHILS % (AUTO) 64.4 % (42-78); WHITE BLOOD COUNT 6.6 10^3/uL (4.0-10.5)
[2017-10-08 08:56] LABS: BLOOD UREA NITROGEN 7 mg/dL (7-20); CALCIUM 9.3 mg/dL (8.4-10.2); GLUCOSE 104 mg/dL (75-110)
[2017-10-08 08:57] LABS: ALANINE AMINOTRANSFERASE 47 U/L (21-72); ALBUMIN 4.2 g/dL (3.5-5.0); ALKALINE PHOSPHATASE 134 U/L (38-126); ANION GAP 10 (5-19); ASPARTATE AMINO TRANSFERASE 32 U/L (17-59); BILIRUBIN,DIRECT 0.2 mg/dL (0.0-0.4); BILIRUBIN,TOTAL 0.4 mg/dL (0.2-1.3); CARBON DIOXIDE 27 mmol/L (22-30); CHLORIDE 104 mmol/L (98-107); POTASSIUM 3.6 mmol/L (3.6-5.0); SODIUM 141.3 mmol/L (137-145); TOTAL PROTEIN 6.9 g/dL (6.3-8.2)
[2017-10-08 09:04] LABS: ALCOHOL < 10 mg/dL (NONE DETECTED); LITHIUM < 0.2 mEq/L (0.6-1.2)
[2017-10-08 09:31] LABS: APPEARANCE,URINE CLEAR; BILIRUBIN,URINE NEGATIVE (NEGATIVE); GLUCOSE, URINE NEGATIVE (NEGATIVE); KETONES,URINE NEGATIVE (NEGATIVE); LEUKOCYTE ESTERASE,URINE NEGATIVE (NEGATIVE); NITRITE,URINE NEGATIVE (NEGATIVE); PROTEIN,URINE NEGATIVE (NEGATIVE); URINE SPECIFIC GRAVITY 1.013; UROBILINOGEN,URINE NEGATIVE mg/dL (<2.0)
[2017-10-08 09:42] LABS: URINE BARBITURATES SCREEN NEGATIVE; URINE METHADONE SCREEN NEGATIVE; URINE OPIATES LOW NEGATIVE; URINE PHENCYCLIDINE SCREEN NEGATIVE
--- NOTE | 2017-10-08 12:54 | EKG REPORT ---
SEVERITY:- BORDERLINE ECG - SINUS RHYTHM BORDERLINE T WAVE ABNORMALITIES : Confirmed by: Nitin Dempsey MD 08-Oct-2017 12:54:01
[2017-10-08 14:21] VITALS: BP 137/67
--- NOTE | 2017-10-10 19:02 | PSYCHOLOGICAL NOTE ---
Psych Note - Psych Note Psych Note: Patient is a 22 year old male who presented to the ED today for SI (said tried to hang self today), history of Schizophrenia, off medications, and recent discharge from [facility]. Patient reported he has been hearing voices. He stated he heard them during assessment. He identified they tell him to hurt himself and speak ancient languages. He stated he tried to hang himself in the bathtub today. Only with further questioning did he say he used a towel and was trying to hang it but did not identify on what just kept saying in the bathtub. He stated he had current SI. He stated he has previous SI, numerous, but it has been two months because he had been inpatient at [facility] and was just discharged 6 days ago. He noted he needed to go back inpatient because he cannot handle his Schizophrenia. He stated he has [employer] insurance but could not afford his medications when discharged from [facility] (noted lots of medications but could only recall Abilify). He identified he is from [place] and that is where is family (mother) is. He stated he has been staying at the local homeless [facility]. He knew about their process in terms of when he could return for the night and having to be gone throughout the day. He identified he has been hospitalized multiple times and mentioned [place], [facility], [facility], [facility] and 2 others he could not recall. He stated he wanted to go inpatient to get back on medication and get closer to [place] ( home). Patient was alert and oriented to person, place, time and situation. Mood was euthymic with congruent affect. He reported SI will attempt earlier today to hang self in bathtub. He di not have specifics on what or how he attempted to hang self and only provided further information when questioned. Also he reported he has been staying at the homeless mcc. He admitted his goal was to get back on medication and closer to [place] (home). He denied HI. He endorsed auditory hallucinations however had fair eye contact, answered questions appropriately when addressed, stayed on topic and was able to carry on dialogue conversation. Thought processes were organized and linear. Conversational speech was WNL for rate, tone and prosody. Intellectual abilities are estimated to be average. Insight, judgment and impulse control were fair AEB organized and linear thinking. [facility] Behavioral Health team contacted [facility] for list of discharge medications. Dates of hospitalization are listed as 07/20/17 through 10/02/17. Medications are as follows: Lithoid 600MG BID for mood Ativan 0.5MG BID for anxiety Prilosec 20MG BID for GERD Cogentin 1MG BID for EPS Lexapro 5MG QHS for depression Lunesta 1MG QHS for Insomnia Haldol 5MG QHS for psychosis Abilify 15MG BID for mood/lability Seroquel 200MG QHS for mood Trazodone 50MG QHS for insomnia Patient gave verbal consent to contact his mother, Siria ([phone]), for collateral and to keep her aware of plan of care. She stated patient has had behavioral issues for years and has been to 809 hospitalizations. She stated this last time he had talked about worshiping the devil and joining [employer]. She noted she has other children in her home and can no longer have patient there. She commented how every other time in the past she has allowed him to come back. She stated he has a history of noncompliance with medication. She further stated patient will be good for a month or so after discharge from [facility] even if he doesnt continue medication, but it will catch up with him. She noted this has been the typical routine for him after hospitalizations. She stated patient had been in [facility] since June and she did not know until a week before discharge. She stated he had been on her [employer] which ended 09/20/17 and [facility] was supposed to compete Medicaid application. She stated family history of maternal grandmother diagnosed with Bipolar Disorder. She stated she would provide transportation for patient to get back to [facility] where she would take him to their local mcc. Diagnosis: 295.90 (F20.9) Schizophrenia by History Impression/Plan: Patient is psychiatrically cleared. He does not meet [place] IVC criteria. He at first endorsed SI with attempt and plan, later admitted to wanting to get back to [place] (home), is familiar with hospitalization which is likely a safe haven for him in terms of getting needs met, and had a brighter affect when made aware mother would provide transportation for him to get back to [place]. Mother will be providing the transportation tomorrow (10/09/17) morning. She was provided with local homeless mcc contact information. Provided patient with outpatient resource list which highlighted both [facility] numbers. Also wrote mothers phone number down and encouraged him to call her in the morning before he has to leave the mcc for the day so he knows when she is leaving/has left and when to expect her. He had a bright affect when discussing this plan and asked could the hospital get a cab for me so I can get back to the homeless mcc? Again this statement shows linear and organized thinking. Consulted with Dr. Tate regarding the management and care of patient. ED Physician in agreement with recommendation.
== END 2017-10-08 14:25 | disposition home or self-care (01) ==
LOC: ER 07:21
DX: F20.9 Schizophrenia, unspecified (principal); F32.9 Major depressive disorder, single episode, unspecified; R45.851 Suicidal ideations; T43.4X6A Underdosing of butyrophenone and thiothixene neuroleptics, initial encounter; T43.596A Underdosing of other antipsychotics and neuroleptics, initial encounter; T43.226A Underdosing of selective serotonin reuptake inhibitors, initial encounter; Z91.120 Patient's intentional underdosing of medication regimen due to financial hardship; F17.200 Nicotine dependence, unspecified, uncomplicated; Z59.0 Homelessness; Z88.0 Allergy status to penicillin
CPT/HCPCS: 36415; 80053; 80178; 80307; 81001; 85025; 93005; 93010; 99285